=== PATIENT | male | born 1955 | race Caucasian/White ===

== ENCOUNTER 2021-05-06 15:56 | Inpatient (IN) ==
[2021-05-06] MEDS ORDERED: Isovue-370 500 ML BOTTLE IVP ONE (20:09)
[2021-05-06] MEDS ORDERED: Perflutren Lipid Microsphere 1.3 ML in 0.9 % Sodium Chloride 8.7 ML IVP PRN (20:31)
[2021-05-06] MEDS ORDERED: Naloxone 0.4 MG/ML INJ IVP PRN (20:35)
[2021-05-06] MEDS ORDERED: Ondansetron 4 MG/2 ML VIAL IVP PRN (20:35)
[2021-05-06] MEDS ORDERED: 0.9 % Sodium Chloride 1,000 ML IVC SCH (20:45)
[2021-05-06] MEDS ORDERED: *HR* Heparin 5,000 UNIT/ML VIAL IVP PRN ×2 (21:40)
[2021-05-06] MEDS: hydrALAZINE 25 MG TABLET PO SCH (22:28)
[2021-05-06] MEDS: Heparin 25,000UNIT/250ML 1/2NS 25,000 UNIT/250 ML IV.SOLN IVC SCH (22:29)
[2021-05-07] MEDS ORDERED: Dextrose Gel 15 GM/37.5 ML TUBE PO ONE (00:28)
[2021-05-07 01:18] LABS: Basophils % 0.5 %; Eosinophils # 0.1 K/mcL (0.0-0.6); Eosinophils % 1.5 %; Hematocrit 25.1 % (37.5-50.1); Hemoglobin 8.1 g/dL (12.9-16.9); Immature Granulocytes % 0.4 % (0-4); Lymphocytes # 1.6 K/mcL (0.6-4.6); Lymphocytes % 18.6 %; Mean Corpuscular HGB Conc 32.3 g/dL (31.6-35.5); Mean Corpuscular Hemoglobin 27.9 pg (28.0-33.3); Mean Corpuscular Volume 86.6 fL (83.0-100.0); Mean Platelet Volume 11.1 fL (9.4-12.4); Monocytes # 1.2 K/mcL (0.0-1.3); Monocytes % 13.6 %; Neutrophils # 5.6 K/mcL (1.6-8.9); Platelet Count 306 K/mcL (140-400); Red Cell Distribution Width 13.5 % (11.5-14.5); Segmented Neutrophils % 65.4 %; White Blood Count 8.5 K/mcL (4.3-11.1)
[2021-05-07 01:26] LABS: INR 2.2; Prothrombin Time 24.3 Seconds (9.4-12.1)
[2021-05-07 01:29] LABS: Heparin anti-factor XA UFH 1.64 IU/mL (0.30-0.70)
[2021-05-07] MEDS ORDERED: *HR* Dextrose 50 % in Water (Syg) 50 ML SYRINGE IVP PRN (01:48)
[2021-05-07] MEDS ORDERED: Dextrose Gel 15 GM/37.5 ML TUBE PO PRN ×2 (01:48)
[2021-05-07] MEDS ORDERED: D5% in Water 1,000 ML IVC PRN (01:48)
[2021-05-07 02:34] LABS: Alanine Aminotransferase 16 Units/L (7-52); Alkaline Phosphatase 69 Units/L (34-104); Aspartate Amino Transferase 20 Units/L (13-39); BUN/Creatinine Ratio 26 (6-26); Bilirubin,Total 0.9 mg/dL (0.3-1.0); Blood Urea Nitrogen 38 mg/dL (8-23); Carbon Dioxide 22 mEq/L (23-29); Chloride 103 mEq/L (98-107); Chol/HDL Ratio 4.5 (0-4.9); Cholesterol 107 mg/dL (< 200); Glucose 53 mg/dL (70-105); HDL Cholesterol 24 mg/dL (40-59); Iron < 10 mcg/dL (65-175); LDL Cholesterol,Calculated 69 mg/dL (< 100); Osmolality,Calculated 285 (280-300); Potassium 3.9 mEq/L (3.5-5.1); Sodium 134 mEq/L (136-145); Transferrin 119 mg/dL (203-362); Triglycerides 71 mg/dL (< 150); eGFR For African Americans 58 (> 60); eGFR For Non-African Americans 48 (> 60)
[2021-05-07] MEDS: Heparin 25,000UNIT/250ML 1/2NS 25,000 UNIT/250 ML IV.SOLN IVC SCH (03:27)
[2021-05-07 04:59] LABS: Estimated Average Glucose 151 mg/dl; Hemoglobin A1C 6.9 %
[2021-05-07] MEDS ORDERED: Iron Sucrose Complex 400 MG in 0.9 % Sodium Chloride 250 ML IVPB ONE (07:38)
[2021-05-07] MEDS: carvediloL 6.25 MG TABLET PO SCH ×2 (08:29→16:02)
[2021-05-07 10:41] LABS: Folate 13.1 ng/mL (3.0-16.0)
[2021-05-07] MEDS: Acetaminophen 325 MG TABLET PO PRN (11:12)
[2021-05-07] MEDS: hydrALAZINE 25 MG TABLET PO SCH (21:32)
[2021-05-08 06:11] LABS: Basophils # 0.1 K/mcL (0.0-0.2); Basophils % 0.5 %; Eosinophils # 0.2 K/mcL (0.0-0.6); Eosinophils % 1.9 %; Hematocrit 27.3 % (37.5-50.1); Hemoglobin 8.9 g/dL (12.9-16.9); Immature Granulocytes % 0.8 % (0-4); Lymphocytes # 1.3 K/mcL (0.6-4.6); Lymphocytes % 13.7 %; Mean Corpuscular HGB Conc 32.6 g/dL (31.6-35.5); Mean Corpuscular Hemoglobin 27.8 pg (28.0-33.3); Mean Corpuscular Volume 85.3 fL (83.0-100.0); Mean Platelet Volume 11.3 fL (9.4-12.4); Monocytes # 0.8 K/mcL (0.0-1.3); Monocytes % 8.7 %; Neutrophils # 7.1 K/mcL (1.6-8.9); Platelet Count 380 K/mcL (140-400); Red Cell Distribution Width 13.5 % (11.5-14.5); Segmented Neutrophils % 74.4 %; White Blood Count 9.5 K/mcL (4.3-11.1)
[2021-05-08 06:32] LABS: BUN/Creatinine Ratio 24 (6-26); Blood Urea Nitrogen 29 mg/dL (8-23); Calcium 9.1 mg/dL (8.6-10.3); Carbon Dioxide 23 mEq/L (23-29); Chloride 105 mEq/L (98-107); Glucose 94 mg/dL (70-105); Osmolality,Calculated 290 (280-300); Potassium 3.9 mEq/L (3.5-5.1); Sodium 137 mEq/L (136-145); eGFR For African Americans > 60 (> 60); eGFR For Non-African Americans 59 (> 60)
[2021-05-08] MEDS: carvediloL 6.25 MG TABLET PO SCH ×2 (08:08→15:55)
[2021-05-08] MEDS ORDERED: D5% in Water 1,000 ML IVC PRN (08:50)
[2021-05-08] MEDS ORDERED: *HR* Dextrose 50 % in Water (Syg) 50 ML SYRINGE IVP PRN (08:50)
[2021-05-08] MEDS ORDERED: Dextrose Gel 15 GM/37.5 ML TUBE PO PRN (08:50)
[2021-05-08] MEDS: Insulin LISPRO 300 UNITS/3 ML VIAL SUBQ SCH ×4 (09:24→21:22)
[2021-05-08] MEDS: amLODIPine 5 MG TABLET PO SCH (09:46)
[2021-05-08] MEDS: allopurinoL 300 MG TABLET PO SCH (09:46)
[2021-05-08] MEDS: tiZANidine 4 MG TABLET PO SCH ×3 (09:50→21:24)
[2021-05-08 09:51] LABS: Troponin I 0.1 ng/mL (< 0.04)
[2021-05-08] MEDS: Aspirin 81 MG TAB.CHEW PO SCH (15:55)
[2021-05-08] MEDS: Acetaminophen 325 MG TABLET PO PRN (15:55)
[2021-05-08 17:36] LABS: Source,Synovial Fluid LEFT KNEE
[2021-05-08 17:39] LABS: Source,Synovial Fluid RIGHT KNEE
[2021-05-08 21:11] LABS: Color,Synovial Fluid Straw (Straw)
[2021-05-08 21:12] LABS: Appearance,Synovial Fluid Hazy (Clear-Hazy)
[2021-05-08 21:22] LABS: Appearance,Synovial Fluid Hazy (Clear-Hazy); Color,Synovial Fluid Straw (Straw)
[2021-05-08] MEDS: traZODone 50 MG TABLET PO SCH (21:24)
[2021-05-08] MEDS: hydrALAZINE 25 MG TABLET PO SCH (21:24)
[2021-05-08] MEDS: Apixaban 5 MG TABLET PO SCH (21:24)
[2021-05-09 07:58] LABS: Basophils # 0.1 K/mcL (0.0-0.2); Basophils % 0.8 %; Eosinophils # 0.4 K/mcL (0.0-0.6); Eosinophils % 5.1 %; Hematocrit 27.7 % (37.5-50.1); Hemoglobin 8.8 g/dL (12.9-16.9); Immature Granulocytes % 1.3 % (0-4); Lymphocytes # 1.5 K/mcL (0.6-4.6); Lymphocytes % 18.3 %; Mean Corpuscular HGB Conc 31.8 g/dL (31.6-35.5); Mean Corpuscular Hemoglobin 27.5 pg (28.0-33.3); Mean Corpuscular Volume 86.6 fL (83.0-100.0); Mean Platelet Volume 11.2 fL (9.4-12.4); Monocytes # 0.8 K/mcL (0.0-1.3); Monocytes % 9.4 %; Neutrophils # 5.4 K/mcL (1.6-8.9); Platelet Count 386 K/mcL (140-400); Red Cell Distribution Width 13.8 % (11.5-14.5); Segmented Neutrophils % 65.1 %; White Blood Count 8.4 K/mcL (4.3-11.1)
[2021-05-09 08:17] LABS: Calcium 8.8 mg/dL (8.6-10.3); Magnesium 1.7 mg/dL (1.6-2.6); Potassium 3.9 mEq/L (3.5-5.1)
[2021-05-09] MEDS: Insulin LISPRO 300 UNITS/3 ML VIAL SUBQ SCH ×4 (08:23→21:25)
[2021-05-09] MEDS: tiZANidine 4 MG TABLET PO SCH ×3 (08:24→21:24)
[2021-05-09] MEDS: allopurinoL 300 MG TABLET PO SCH (08:24)
[2021-05-09] MEDS: Aspirin 81 MG TAB.CHEW PO SCH (08:24)
[2021-05-09] MEDS: Apixaban 5 MG TABLET PO SCH ×2 (08:24→21:24)
[2021-05-09] MEDS: carvediloL 6.25 MG TABLET PO SCH ×2 (08:24→15:43)
[2021-05-09] MEDS: amLODIPine 5 MG TABLET PO SCH (08:25)
[2021-05-09] MEDS: predniSONE 20 MG TABLET PO SCH (09:41)
[2021-05-09] MEDS ORDERED: 0.9 % Sodium Chloride 1,000 ML IVC SCH (13:15)
[2021-05-09] MEDS: hydrALAZINE 25 MG TABLET PO SCH (21:25)
[2021-05-09] MEDS: traZODone 50 MG TABLET PO SCH (21:25)
[2021-05-10] MEDS: carvediloL 6.25 MG TABLET PO SCH ×2 (07:37→17:18)
[2021-05-10] MEDS: Insulin LISPRO 300 UNITS/3 ML VIAL SUBQ SCH ×4 (09:13→20:19)
[2021-05-10] MEDS: amLODIPine 5 MG TABLET PO SCH (09:14)
[2021-05-10] MEDS: tiZANidine 4 MG TABLET PO SCH ×3 (09:14→20:57)
[2021-05-10] MEDS: allopurinoL 300 MG TABLET PO SCH (09:14)
[2021-05-10] MEDS: Apixaban 5 MG TABLET PO SCH ×2 (09:14→20:19)
[2021-05-10] MEDS: Aspirin 81 MG TAB.CHEW PO SCH (09:14)
[2021-05-10] MEDS: predniSONE 20 MG TABLET PO SCH (09:15)
[2021-05-10 09:22] LABS: Hematocrit 27.9 % (37.5-50.1); Hemoglobin 9.1 g/dL (12.9-16.9)
[2021-05-10 09:33] LABS: BUN/Creatinine Ratio 24 (6-26); Blood Urea Nitrogen 32 mg/dL (8-23); Calcium 8.8 mg/dL (8.6-10.3); Carbon Dioxide 25 mEq/L (23-29); Chloride 104 mEq/L (98-107); Glucose 203 mg/dL (70-105); Magnesium 1.6 mg/dL (1.6-2.6); Osmolality,Calculated 295 (280-300); Phosphorous 3.2 mg/dL (2.7-4.5); Sodium 136 mEq/L (136-145); eGFR For African Americans > 60 (> 60); eGFR For Non-African Americans 55 (> 60)
[2021-05-10] MEDS ORDERED: 0.9 % Sodium Chloride 1,000 ML IVC SCH (16:00)
[2021-05-10] MEDS: traZODone 50 MG TABLET PO SCH (20:19)
[2021-05-10] MEDS: hydrALAZINE 25 MG TABLET PO SCH (20:22)
[2021-05-11 01:53] LABS: BUN/Creatinine Ratio 23 (6-26); Blood Urea Nitrogen 33 mg/dL (8-23); Calcium 8.3 mg/dL (8.6-10.3); Carbon Dioxide 24 mEq/L (23-29); Chloride 103 mEq/L (98-107); Glucose 293 mg/dL (70-105); Magnesium 1.6 mg/dL (1.6-2.6); Osmolality,Calculated 298 (280-300); Phosphorous 3.4 mg/dL (2.7-4.5); Potassium 4.6 mEq/L (3.5-5.1); Sodium 135 mEq/L (136-145); eGFR For African Americans > 60 (> 60); eGFR For Non-African Americans 50 (> 60)
[2021-05-11] MEDS ORDERED: lisinopriL 10 MG TABLET PO SCH (09:00)
[2021-05-11] MEDS: amLODIPine 5 MG TABLET PO SCH (10:24)
[2021-05-11] MEDS: predniSONE 20 MG TABLET PO SCH (10:24)
[2021-05-11] MEDS: carvediloL 6.25 MG TABLET PO SCH (10:24)
[2021-05-11] MEDS: Apixaban 5 MG TABLET PO SCH (10:24)
[2021-05-11] MEDS: Aspirin 81 MG TAB.CHEW PO SCH (10:25)
[2021-05-11] MEDS: tiZANidine 4 MG TABLET PO SCH (10:25)
[2021-05-11] MEDS: allopurinoL 300 MG TABLET PO SCH (10:26)
[2021-05-11] MEDS: Insulin LISPRO 300 UNITS/3 ML VIAL SUBQ SCH ×2 (10:29→13:09)
[2021-05-11 11:11] VITALS: BP 165/70; PULSE 51; TEMP 98.2; O2SAT 95
[2021-05-11 11:38] LABS: Influenza A PCR Negative (Negative); Influenza B PCR Negative (Negative); Resp. Syncytial Virus PCR Negative (Negative)
[2021-05-11 11:42] LABS: SARS-CoV-2 by PCR (In House) Negative (Negative)
== END 2021-05-11 15:23 | disposition other institution (70) | DRG 64 ==
LOC: 3BNU → SUATTDRO 18:49
PROVIDERS: ADMIT Pharmacist; ATTEND Internal Medicine

== ENCOUNTER 2021-06-01 22:12 | Observation (INO) ==
[2021-06-02] MEDS ORDERED: *HR* Promethazine 25 MG/ML VIAL IM PRN (03:39)
[2021-06-02] MEDS ORDERED: Naloxone 0.4 MG/ML INJ IVP PRN (03:39)
[2021-06-02] MEDS ORDERED: Dextrose Gel 15 GM/37.5 ML TUBE PO PRN ×2 (03:42)
[2021-06-02] MEDS ORDERED: D5% in Water 1,000 ML IVC PRN (03:42)
[2021-06-02] MEDS ORDERED: *HR* Dextrose 50 % in Water (Syg) 50 ML SYRINGE IVP PRN (03:42)
[2021-06-02 05:49] LABS: Hemoglobin 8.7 g/dL (12.9-16.9); Mean Corpuscular HGB Conc 32.2 g/dL (31.6-35.5); Mean Corpuscular Hemoglobin 27.9 pg (28.0-33.3); Mean Corpuscular Volume 86.5 fL (83.0-100.0); Mean Platelet Volume 11.2 fL (9.4-12.4); Platelet Count 453 K/mcL (140-400); Red Blood Count 3.12 M/mcL (4.19-5.50); Red Cell Distribution Width 14.6 % (11.5-14.5)
[2021-06-02 05:55] LABS: INR 1.8; Prothrombin Time 20.5 Seconds (9.4-12.1)
[2021-06-02 06:14] LABS: Calcium 8.5 mg/dL (8.6-10.3); Magnesium 1.6 mg/dL (1.6-2.6); Phosphorous 3.8 mg/dL (2.7-4.5)
[2021-06-02] MEDS: *HR* HYDROcodone/Acet 5/325 mg TABLET PO PRN ×2 (06:44→14:06)
[2021-06-02] MEDS ORDERED: *HR* Heparin 5,000 UNIT/ML VIAL IVP PRN ×2 (07:21)
[2021-06-02] MEDS ORDERED: Heparin 25,000UNIT/250ML 1/2NS 25,000 UNIT/250 ML IV.SOLN IVC SCH (07:30)
[2021-06-02] MEDS: Insulin LISPRO 300 UNITS/3 ML VIAL SUBQ SCH ×3 (08:03→16:43)
[2021-06-02] MEDS: Heparin 25,000UNIT/250ML 1/2NS 25,000 UNIT/250 ML IV.SOLN IVC SCH (08:11)
[2021-06-02] MEDS: Aspirin Enteric Coated 81 MG Tablet PO SCH (08:11)
[2021-06-02] MEDS ORDERED: Apixaban 5 MG TABLET PO SCH (09:00)
[2021-06-02 09:08] LABS: INR 1.7; Prothrombin Time 18.5 Seconds (9.4-12.1)
[2021-06-02 09:13] LABS: Heparin anti-factor XA UFH 1.32 IU/mL (0.30-0.70)
[2021-06-02 09:37] LABS: Estimated Average Glucose 163 mg/dl; Hemoglobin A1C 7.3 %
[2021-06-02] MEDS: hydrALAZINE 25 MG TABLET PO SCH ×2 (12:27→20:41)
[2021-06-02] MEDS: Acetaminophen 325 MG TABLET PO PRN (20:48)
[2021-06-02] MEDS: Melatonin 3 MG TABLET PO PRN (20:49)
[2021-06-03] MEDS: Heparin 25,000UNIT/250ML 1/2NS 25,000 UNIT/250 ML IV.SOLN IVC SCH (05:22)
[2021-06-03] MEDS: Insulin LISPRO 300 UNITS/3 ML VIAL SUBQ SCH ×3 (07:26→16:56)
[2021-06-03] MEDS: Aspirin Enteric Coated 81 MG Tablet PO SCH (07:39)
[2021-06-03] MEDS: Apixaban 5 MG TABLET PO SCH ×2 (09:46→19:42)
[2021-06-03 14:50] LABS: Calcium 8.5 mg/dL (8.6-10.3); Potassium 4.2 mEq/L (3.5-5.1)
[2021-06-03] MEDS: carvediloL 6.25 MG TABLET PO SCH (16:59)
[2021-06-03] MEDS: hydrALAZINE 25 MG TABLET PO SCH (19:42)
[2021-06-03] MEDS: Acetaminophen 325 MG TABLET PO PRN (19:43)
[2021-06-03] MEDS: Melatonin 3 MG TABLET PO PRN (19:43)
[2021-06-04] MEDS ORDERED: Regadenoson 0.4 MG/5 ML SYRINGE IVP ONE (06:13)
[2021-06-04 06:33] LABS: BUN/Creatinine Ratio 21 (6-26); Blood Urea Nitrogen 27 mg/dL (8-23); Carbon Dioxide 24 mEq/L (23-29); Chloride 104 mEq/L (98-107); Glucose 108 mg/dL (70-105); Osmolality,Calculated 286 (280-300); Potassium 4.4 mEq/L (3.5-5.1); Sodium 135 mEq/L (136-145); eGFR For African Americans > 60 (> 60); eGFR For Non-African Americans 57 (> 60)
[2021-06-04] MEDS: Insulin LISPRO 300 UNITS/3 ML VIAL SUBQ SCH ×3 (07:10→16:30)
[2021-06-04] MEDS: *HR* HYDROcodone/Acet 5/325 mg TABLET PO PRN (10:03)
[2021-06-04] MEDS: Aspirin Enteric Coated 81 MG Tablet PO SCH (10:03)
[2021-06-04] MEDS: carvediloL 6.25 MG TABLET PO SCH ×2 (10:03→16:33)
[2021-06-04] MEDS: Apixaban 5 MG TABLET PO SCH ×2 (10:03→19:40)
[2021-06-04] MEDS: hydrALAZINE 25 MG TABLET PO SCH (19:40)
[2021-06-04] MEDS: Melatonin 3 MG TABLET PO PRN (19:41)
[2021-06-05] MEDS: *HR* HYDROcodone/Acet 5/325 mg TABLET PO PRN ×2 (02:08→20:43)
[2021-06-05] MEDS: carvediloL 6.25 MG TABLET PO SCH ×2 (07:07→17:00)
[2021-06-05] MEDS: Aspirin Enteric Coated 81 MG Tablet PO SCH (07:07)
[2021-06-05] MEDS: Apixaban 5 MG TABLET PO SCH ×2 (07:07→20:43)
[2021-06-05] MEDS: Insulin LISPRO 300 UNITS/3 ML VIAL SUBQ SCH ×3 (07:46→17:00)
[2021-06-05 19:25] LABS: Bilirubin,Urine Negative (Negative); Blood,Urine Small (Negative); Clarity,Urine Turbid (Clear); Color,Urine Light-Yellow (Yellow); Glucose,Urine (UA) Normal (Normal); Hyaline Casts,Urine Few per lpf (None Seen); Ketones,Urine Negative (Negative); Leukocyte Esterase,Urine Large (Negative); Mucus,Urine Few per lpf (None-Few); Nitrite,Urine Negative (Negative); Protein,Urine 70 mg/dL (Neg-Trace); RBC,Urine 30-50 per hpf (0-3); Specific Gravity,Urine 1.016 (1.010-1.025); Squamous Epithelial Cell,Urine Few per hpf (None-Few); Urobilinogen,Urine Normal (Normal); WBC,Urine 50-100 per hpf (0-3)
[2021-06-05] MEDS: Melatonin 3 MG TABLET PO PRN (20:43)
[2021-06-05] MEDS: hydrALAZINE 25 MG TABLET PO SCH (20:43)
[2021-06-06] MEDS: carvediloL 6.25 MG TABLET PO SCH ×2 (07:11→17:27)
[2021-06-06] MEDS: Aspirin Enteric Coated 81 MG Tablet PO SCH (07:11)
[2021-06-06] MEDS: Apixaban 5 MG TABLET PO SCH ×2 (07:11→21:27)
[2021-06-06] MEDS: Insulin LISPRO 300 UNITS/3 ML VIAL SUBQ SCH ×3 (07:40→16:00)
[2021-06-06] MEDS: hydrALAZINE 25 MG TABLET PO SCH (21:27)
[2021-06-06] MEDS: Melatonin 3 MG TABLET PO PRN (21:34)
[2021-06-07] MEDS: *HR* HYDROcodone/Acet 5/325 mg TABLET PO PRN (02:39)
[2021-06-07] MEDS: Aspirin Enteric Coated 81 MG Tablet PO SCH (07:19)
[2021-06-07] MEDS: Insulin LISPRO 300 UNITS/3 ML VIAL SUBQ SCH ×3 (07:20→19:43)
[2021-06-07] MEDS: Apixaban 5 MG TABLET PO SCH ×2 (07:20→20:39)
[2021-06-07] MEDS: carvediloL 6.25 MG TABLET PO SCH ×2 (07:20→18:50)
[2021-06-07 15:35] LABS: Adenovirus Not Detected (Not Detect); Bordetella Pertussis Not Detected (Not Detect); Chlamydophila pneumoniae Not Detected (Not Detect); Coronavirus 229E Not Detected (Not Detect); Coronavirus HKU1 Not Detected (Not Detect); Coronavirus NL63 Not Detected (Not Detect); Coronavirus OC43 Not Detected (Not Detect); Human Metapneumovirus Not Detected (Not Detect); Human Rhinovirus/Enterovirus Not Detected (Not Detect); Influenza A Subtype 2009 H1 Not Detected (Not Detect); Influenza B Not Detected (Not Detect); Mycoplasma pneumoniae Not Detected (Not Detect); Parainfluenza Virus 1 Not Detected (Not Detect); Parainfluenza Virus 2 Not Detected (Not Detect); Parainfluenza Virus 3 Not Detected (Not Detect); Parainfluenza Virus 4 Not Detected (Not Detect); Respiratory Syncytial Virus Not Detected (Not Detect); SARS-CoV-2 Not Detected (Not Detect)
[2021-06-07] MEDS: hydrALAZINE 25 MG TABLET PO SCH (20:39)
[2021-06-08] MEDS ORDERED: MOM Conc 10 ML UD.LIQ PO ONE (01:14)
[2021-06-08] MEDS ORDERED: Sennosides/Docusate Sodium TABLET PO ONE (01:14)
[2021-06-08] MEDS ORDERED: Preparation H Ointment 57 GM TUBE TP PRN (01:56)
[2021-06-08 02:56] VITALS: O2SAT 96
[2021-06-08] MEDS: Acetaminophen 325 MG TABLET PO PRN (05:18)
[2021-06-08 06:56] VITALS: BP 162/72; PULSE 55; TEMP 98.5
== END 2021-06-08 08:18 ==
LOC: 3NENU → SUATTDRO 06-02 02:31
PROVIDERS: ADMIT Internal Medicine; ATTEND Student in an Organized Health Care Education/Training Program